=== PATIENT | female | born 1980 | race Two or more races ===

== ENCOUNTER → 2018-04-04 | Outpatient (REF) | payer SELFPAY ==
[~2018-04-04] MED LIST: HYDR-385 PO; IBU800 PO; IBUP800T37 PO; METR-1 PO; PAN40 PO; PER PO; PREN-85 PO; TETR-30 PO; [UNRECOGNIZED DRUG - CODE] PO
[2018-04-04 18:22] LABS: PLATELET COUNT, AUTOMATED 241 K/uL (150-450)
== END ==
LOC: ZZSENDIN 17:41
PROVIDERS: ATTEND Nurse Practitioner Family
DX: O13.2 Gestational [pregnancy-induced] hypertension without significant proteinuria, second trimester (principal); Z3A.19 19 weeks gestation of pregnancy
CPT/HCPCS: 82040; 82247; 82310; 82374; 82435; 82565; 82947; 83615; 84075; 84132; 84155; 84295; 84450; 84460; 84520; 84550; 85025

== ENCOUNTER 2018-08-17 04:58 | Inpatient (IN) | payer SELFPAY ==
[~2018-08-17] VITALS: Ht 162.6 cm; Wt 88.5 kg
[2018-08-17] VITALS (19 sets, daily range): BP systolic 99–126; BP diastolic 45–80; Ht 162.6 cm; Wt 88.5 kg
[2018-08-17] MEDS ORDERED: METOCLOPRAMIDE 10 MG/2 ML SDV IVP ONE (05:05)
[2018-08-17] MEDS ORDERED: FAMOTIDINE 20 MG/50 ML PREMIX IVPB ONE (05:05)
[2018-08-17] MEDS ORDERED: cefOXitin/DEX(*) 2GM/50ML PREM 50 ML IVPB ONE (05:05)
[2018-08-17] MEDS ORDERED: CITRIC ACID/SOD CIT 15 ML UDC PO ONE (05:25)
[2018-08-17] MEDS ORDERED: ONDANSETRON 4 MG/2 ML VIAL IVP ONE (05:30)
[2018-08-17] MEDS: LR(*) 1000 ML BAG 1,000 ML IV SCH ×3 (05:46→07:25)
[2018-08-17 06:08] LABS: PLATELET COUNT, AUTOMATED 211 K/uL (150-450)
[2018-08-17] MEDS ORDERED: PREN-127 PO (06:18)
[2018-08-17] MEDS ORDERED: AMOX500T10 PO (06:18)
[2018-08-17] MEDS ORDERED: MORPHINE PF 5 MG/10 ML AMP ONE (06:44)
[2018-08-17] MEDS ORDERED: OXYTOCIN 10 UNIT/ML SDV ONE (06:44)
[2018-08-17] MEDS ORDERED: fentaNYL CITR 100 MCG/2 ML AMP ONE (06:44)
[2018-08-17] MEDS ORDERED: KETOROLAC 30 MG/ML VIAL ONE (06:44)
[2018-08-17] MEDS ORDERED: ePHEDrine 25 MG/5 ML DISP.SYR IVP ONE ×2 (07:28→07:43)
[2018-08-17] MEDS ORDERED: GLYCOPYRROLATE 0.2MG/ML 1 ML INJ ONE (07:54)
[2018-08-17] MEDS ORDERED: PHENYLEPHRINE 10 MG/1 ML VIAL ONE (08:05)
--- NOTE | 2018-08-17 08:52 | History & Physical ---
History of Present Illness Age of Patient: 38 : 4 Para or TPAL: 2 EDC per LMP: August 29, 2018 Estimated Gestational Age: 39 Chief Complaint repeat c/s History of Present Illness Previous c/s x 2. complicated by CHTN and followed with serial u/s exams. This was early 19 week elevated pressure but did not see any more e levated pressures after. Past Medical, Surgical, Family and Obstetric Histories reviewed. Please see ACOG chart. History Allergies: Coded Allergies: No Known Allergies (Unverified Allergy, Mild, 09/29/12) Med Rec Home Meds Reported Medications Amoxicillin 500 Mg Tab (AMOXICILLIN 500 MG TAB) 500 Mg Tablet, 1 TAB PO Q8H, TAB 08/17/18 Vits W-Ca,Fe,Fa(<1MG) ( VITAMINS) 1 Each Tablet, 1 EACH PO DAILY, TAB 08/17/18 Discontinued Reported Medications Ibuprofen (IBUPROFEN) 800 Mg Tablet, 1 TAB PO Q8H, #60 09/30/12 Hydrocodone Bit/Acetaminophen (HYDROCODON-ACETAMINOPHEN 5-325) 1 Each Tablet, 1 - 2 EACH PO Q4-6H PRN, #40 09/30/12 [None] No Conflict Check 01/16/07 Review of Systems All Systems Reviewed/Normal: Yes, Except as Noted Exam General Exam Vital Signs Vital Signs Date Time Temp Pulse Resp B/P (MAP) Pulse Ox O2 Delivery O2 Flow Rate FiO2 08/17/18 05:50 98.1 79 16 108/65 (79) 96 Room Air General Apperance: Alert/Awake/No Acute Distress Neuro: No Gross deficits Eyes: Normal Extraocular Movement & Vison Cardiovascular: Regular Rate and Rhythm Respiratory: No Respiratory Distress Abdomen: Soft, Non-Tender, Non-Distended Extremities: No Cyanosis,Clubbing or Edema Integumentary: Skin Intact without Lesions or Rash Psychological: Alert & Oriented X3 Fetus FHT Category: I Medical Decision Making Data Points Result Diagram: 08/17/18 0545 VTE Prophylasis: Adult Deep Vein Thrombosis/Pulmonary: No Pharmacological Contraindicati: Pt at Low Risk for VTE Mechanical Contraindications: Pt at Low Risk for VTE Assessment and Plan Problems: (1) Previous section Assessment & Plan: Planned repeat c/s. Consent obtained. (2) 39 weeks gestation of OTIS SOLIS MD August 17, 2018 08:52
[2018-08-17] MEDS ORDERED: OXYTOCIN 30 UNIT/NS 500 ML 500 ML IV PRN (08:59)
[2018-08-17] MEDS ORDERED: MEASLES,MUMP,RUBELLA VAC 0.5ML SUBQ ONE (09:00)
[2018-08-17] MEDS ORDERED: ONDANSETRON 4 MG/2 ML VIAL IV PRN (09:00)
[2018-08-17] MEDS ORDERED: LANOLIN OINT 7 GM TUBE TP PRN (09:00)
[2018-08-17] MEDS: FAMOTIDINE 20 MG TAB PO SCH ×2 (09:00→21:54)
[2018-08-17] MEDS ORDERED: SIMETHICONE 80 MG CHEW CHEW PRN (09:00)
[2018-08-17] MEDS ORDERED: ACETAMINOPHEN 325 MG TAB PO PRN (09:00)
[2018-08-17] MEDS ORDERED: INFLUENZA VIRUS VAC 0.5ML SYR IM ONE (09:00)
[2018-08-17] MEDS: DOCUSATE CALCIUM 240 MG CAP PO SCH ×2 (09:00→21:53)
[2018-08-17] MEDS ORDERED: PROMETHAZINE 25 MG/ML 1 ML AMP IVP PRN (09:00)
--- NOTE | 2018-08-17 09:02 | Post Operative Note ---
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
[2018-08-17] MEDS ORDERED: IBUP800T37 PO (09:05)
[2018-08-17] MEDS ORDERED: DOCU-416 PO (09:05)
[2018-08-17] MEDS ORDERED: OXYC-865 PO (09:05)
--- NOTE | 2018-08-17 09:51 | OPERATIVE REPORT 1 ---
EVENT DATE: August 17, 2018 SURGEON: Levon Acosta MD ANESTHESIOLOGIST: Aida Dick CRNA ANESTHESIA: Spinal. MANAGER SPECIALTY: CAITLIN Jaime PREOPERATIVE DIAGNOSES 1. 38-week intrauterine . 2. Chronic hypertension. 3. Previous caesarean section. POSTOPERATIVE DIAGNOSES 1. 38-week intrauterine . 2. Chronic hypertension. 3. Previous caesarean section. PROCEDURE PERFORMED Repeat low transverse caesarean section via Pfannenstiel skin incision. ESTIMATED BLOOD LOSS 700 cc. FLUIDS 800 cc IV crystalloid. URINE OUTPUT 425 cc. FINDINGS Male , cephalic presentation. Apgars were 8 and 9. Placenta normal. Normal appearing uterus, tubes and ovaries. DESCRIPTION OF PROCEDURE The patient was brought to the operating room. Spinal anesthetic was administered. She was placed in the dorsal supine position with a leftward tilt and prepped and draped in the usual sterile fashion. Using a scalpel, a low transverse incision was made, dissecting out the previous scar, carried through to the underlying rectus fascia. This as nicked in the midline and extended laterally. The rectus muscles were dissected off using sharp dissection and in the midline. The peritoneum was entered sharply and extended superiorly and inferiorly. This exposed the uterus. Bladder blade was inserted and the vesicouterine peritoneum was entered sharpy and extended laterally. Bladder flap was created digitally. Bladder blade was reinserted here, retracting the bladder well away from the operative area. This exposed the lower uterine segment, which received a low transverse incision with the scalpel. This was carried through to the intra-amniotic space. There was clear fluid upon the amniotomy. It was extended laterally with blunt lateral traction. A hand was inserted. The infant's head was elevated to the incision and fundal pressure was applied. The infant's head delivered atraumatically. Mouth and nose were again bulb suctioned. Further fundal pressure affected delivery of the shoulders followed by the remainder of the infant without difficulty. Mouth and nose were again bulb suctioned. Cord was clamped, cut and the infant was passed to waiting resuscitation team. Cord sample was obtained. Placenta was delivered manually. Uterus was exteriorized and cleared of clots and debris. Uterine repair was performed with #1 Monocryl and running locking stitch. There was a bleeder noted on the left side of the incision that appeared to be arterial in nature. Therefore, an [place] stitch was performed in that location to tamponade that bleeder. The incision was further imbricated with #1 Monocryl in a running nonlocking stitch. This was hemostatic upon completion. The posterior cul-de-sac was then irrigated and swept clear of clots and debris. Uterus was returned to the abdomen and bilateral pelvic gutters were irrigated and swept clear of clots and debris. The parietal peritoneum was closed with 3-0 Vicryl in a running nonlocking stitch. Rectus muscles were reapproximated in the midline with the same stitch. Muscle bellies were irrigated and blotted dry. A few capillary bleeders were cauterized. The rectus fascia was then repaired using 0 Vicryl in a running nonlocking stitch. Subcuticular space was closed with a 3-0 Vicryl Plus and skin incision was repaired with 4-0 Monocryl simple subdermal. It was covered with Dermabond skin adhesive. She tolerated the procedure well. Sponge, laps, needle and instrument counts were all correct x3. She was taken to recovery in stable condition. JESSIE
[2018-08-17] MEDS: DLR(*) 1000 ML BAG 1,000 ML IV PRN ×2 (10:09→17:15)
--- NOTE | 2018-08-17 11:09 | Anesthesia OB Pre-Anes Eval ---
History of Present Illness Anesthesia Start Date: August 17, 2018 Anesthesia Start Time: 07:26 OB Anesthesia Diagnosis: repeat c/section EDC: August 29, 2018 : 4 Para: 2 Vital Signs: Vital Signs 08/17/18 08/17/18 10:00 11:00 Temp 98.1 Pulse 80 Resp 16 B/P (MAP) 103/45 (64) Pulse Ox 99 O2 Delivery Nasal Cannula O2 Flow Rate 1.0 Vital Signs 08/17/18 08/17/18 10:00 11:00 Temp 98.1 Pulse 80 Resp 16 B/P (MAP) 103/45 (64) Pulse Ox 99 O2 Delivery Nasal Cannula O2 Flow Rate 1.0 Pain Ratin Result Diagram: 08/17/18 0545 Height (Inches): 64.00 Weight (Pounds): 195 BMI (kg/m2): 33.30 Past Medical History Medical History: no pertinent history Surgical History: Attended Childbirth Classes?: No Hx Anesthesia Reactions: No Hx Family Anesthesia Reaction: No Home Meds Active Scripts Oxycodone Hcl/Acetaminophen (PERCOCET 5-325 MG TABLET) 1 Each Tablet, 1 EACH PO Q4-6H PRN for PAIN, #30 TAB 0 Refills TAKE 1 TABLET NEEDED FOR PAIN - NO CLOSER THAN EVERY 4-6 HOURS. Prov:RACQUEL WASHINGTON 08/17/18 Reported Medications Amoxicillin 500 Mg Tab (AMOXICILLIN 500 MG TAB) 500 Mg Tablet, 1 TAB PO Q8H, TAB 08/17/18 Vits W-Ca,Fe,Fa(<1MG) ( VITAMINS) 1 Each Tablet, 1 EACH PO DAILY, TAB 08/17/18 Discontinued Reported Medications Ibuprofen (IBUPROFEN) 800 Mg Tablet, 1 TAB PO Q8H, #60 09/30/12 Hydrocodone Bit/Acetaminophen (HYDROCODON-ACETAMINOPHEN 5-325) 1 Each Tablet, 1 - 2 EACH PO Q4-6H PRN, #40 09/30/12 [None] No Conflict Check 01/16/07 Allergies: Coded Allergies: No Known Allergies (Unverified Allergy, Mild, 09/29/12) Anesthesia OB ROS Neurological: No migraines/headaches, No seizures, No neuropathy, No other ENT: Denies Tooth caps, Denies Loose teeth, Denies Chipped teeth, Denies Dentures, Denies Bridges, Denies Retainers, Denies Veneers, Denies Implants, Denies Tongue ring, Denies Other Pulmonary: No asthma, No smoker (pks/day/yrs), No other Airway Class: ll Cardiovascular ROS: No edema, No arrhythmia, No other GI ROS: NPO Last Solids Date: August 16, 2018 Last Solids Time: 23:30 ROS: No Herpes, No STD(s), No Liver Disease, No Renal Disease, No Other Endocrine ROS: No diabetes, No gestational diabetes, No thyroid disorder, No other Musculoskeletal ROS: No low back pain, No low back injury, No scoliosis, No other ASA Classification: 2 Assessment and Plan Anesthesia Plan: SAB Anesthesia Stop Day: August 17, 2018 Anesthesia Stop Time: 09:07 CASANDRA MIDDLETON CRNA August 17, 2018 11:09
[2018-08-17] MEDS ORDERED: KETOROLAC 30 MG/ML VIAL IVP SCH (13:00)
[2018-08-17] MEDS: KETOROLAC 30 MG/ML VIAL IVP SCH ×2 (14:44→21:54)
[2018-08-17] MEDS ORDERED: ZOLPIDEM TARTRATE 10 MG TAB PO PRN (21:00)
[2018-08-17] MEDS: oxyCODON/ACET (*)5/325MG (CII) 1 TAB TAB PO PRN (21:53)
[2018-08-18] VITALS (7 sets, daily range): BP systolic 94–134; BP diastolic 54–86
[2018-08-18] MEDS: KETOROLAC 30 MG/ML VIAL IVP SCH (04:15)
[2018-08-18 06:20] LABS: PLATELET COUNT, AUTOMATED 178 K/uL (150-450)
--- NOTE | 2018-08-18 08:18 | OB/GYN Progress Note ---
OB Subjective Progress Notes Subjective Doing well. Pain controlled and ambulating well. Catheter in place still. GI: NEG Nausea : Voiding Well Pain: Mild OB Objective Physical Exam Vital Signs Date Time Temp Pulse Resp B/P (MAP) Pulse Ox O2 Delivery O2 Flow Rate FiO2 08/18/18 04:15 98.1 76 18 94/54 (67) Room Air 08/17/18 20:30 92 08/17/18 17:21 0.5 Intake and Output 08/18/18 07:00 Intake Total 740 ml Output Total 5200 ml Balance -4460 ml Intake Oral 740 ml Output Urine Total 5200 ml General Appearance: Alert/Awake/No Acute Distress Neurological: No Gross deficits Eyes: Normal Extraocular Movement & Vison Cardiovascular: Normal Rhythm & Peripheral Pulses, Regular Rate and Rhythm Respiratory: No Respiratory Distress, Clear to Auscultation Extremities: No Cyanosis,Clubbing or Edema Integumentary: Skin Intact without Lesions or Rash Psychological: Alert & Oriented X3 Result Diagram: 08/18/18 0603 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
[2018-08-18] MEDS ORDERED: IBUPROFEN 800 MG TAB PO SCH (09:00)
[2018-08-18] MEDS: FAMOTIDINE 20 MG TAB PO SCH ×2 (09:05→20:48)
[2018-08-18] MEDS: DOCUSATE CALCIUM 240 MG CAP PO SCH ×2 (09:05→20:48)
[2018-08-18] MEDS: oxyCODON/ACET (*)5/325MG (CII) 1 TAB TAB PO PRN ×4 (09:05→21:20)
[2018-08-18] MEDS: IBUPROFEN 800 MG TAB PO SCH ×2 (12:56→20:48)
[2018-08-19] MEDS: oxyCODON/ACET (*)5/325MG (CII) 1 TAB TAB PO PRN ×3 (02:34→12:44)
[2018-08-19 05:08] VITALS: BP 113/73
[2018-08-19] MEDS: IBUPROFEN 800 MG TAB PO SCH ×2 (05:08→12:44)
[2018-08-19 08:00] VITALS: BP 132/80
[2018-08-19] MEDS ORDERED: DIPHTH/TETANUS/ACEL. PERTUSSIS IM ONLY ONE (09:00)
--- NOTE | 2018-08-19 09:22 | OB/GYN Progress Note ---
OB Subjective Progress Notes Subjective Doing well. Pain controlled and ambulating well. Voiding well. Bleeding light. GI: NEG Nausea : Voiding Well Pain: Mild OB Objective Physical Exam Vital Signs Date Time Temp Pulse Resp B/P (MAP) Pulse Ox O2 Delivery O2 Flow Rate FiO2 08/19/18 05:08 97.9 87 16 113/73 (86) 90 Room Air 08/17/18 17:21 0.5 Intake and Output 08/19/18 07:00 Intake Total 600 ml Output Total 300 ml Balance 300 ml Intake Oral 600 ml Output Urine Total 300 ml # Voids 1 General Appearance: Alert/Awake/No Acute Distress Neurological: No Gross deficits Eyes: Normal Extraocular Movement & Vison Cardiovascular: Normal Rhythm & Peripheral Pulses, Regular Rate and Rhythm Respiratory: No Respiratory Distress, Clear to Auscultation Abdomen: Soft, Non-Tender, Non-Distended, Fundus Firm, Non-Tender Incision: Clean, Dry, Intact, Dermabond Extremities: No Cyanosis,Clubbing or Edema Integumentary: Skin Intact without Lesions or Rash Psychological: Alert & Oriented X3 Result Diagram: 08/18/18 0603 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 Reviewed discharge instructions. F/U at 2 and 6 weeks. OTIS SOLIS MD August 19, 2018 09:22
--- NOTE | 2018-08-19 09:23 | OB/GYN Discharge Summary ---
Discharge Summary Reason for Hosp/Final Diag: (1) Previous section (2) 39 weeks gestation of (3) Other specified aftercare following surgery Hospital Course & Plan: Home later today. Reviewed discharge instructions. F/U at 2 and 6 weeks. Lates Vital Signs Vital Signs Date Time Temp Pulse Resp B/P (MAP) Pulse Ox O2 Delivery O2 Flow Rate FiO2 08/19/18 05:08 97.9 87 16 113/73 (86) 90 Room Air 08/17/18 17:21 0.5 Weight (Pounds): 195 Result Diagram: 08/18/18 0603 Condition: Improved Discharge: Home, Self Mcfp Meds Active Scripts Oxycodone Hcl/Acetaminophen (PERCOCET 5-325 MG TABLET) 1 Each Tablet, 1 EACH PO Q4-6H PRN for PAIN, #30 TAB 0 Refills TAKE 1 TABLET NEEDED FOR PAIN - NO CLOSER THAN EVERY 4-6 HOURS. Prov:RACQUEL WASHINGTON 08/17/18 Reported Medications Amoxicillin 500 Mg Tab (AMOXICILLIN 500 MG TAB) 500 Mg Tablet, 1 TAB PO Q8H, TAB 08/17/18 Vits W-Ca,Fe,Fa(<1MG) ( VITAMINS) 1 Each Tablet, 1 EACH PO DAILY, TAB 08/17/18 Discontinued Reported Medications Ibuprofen (IBUPROFEN) 800 Mg Tablet, 1 TAB PO Q8H, #60 09/30/12 Hydrocodone Bit/Acetaminophen (HYDROCODON-ACETAMINOPHEN 5-325) 1 Each Tablet, 1 - 2 EACH PO Q4-6H PRN, #40 09/30/12 [None] No Conflict Check 01/16/07 Follow up Referrals: SIGNALS ANALYST - In Two Weeks @ [facility] with OTIS ACOSTA MD Follow up with: Dr. Acosta [phone] Follow up in: 2 wks PO Discharge Diet: As Tolerates Discharge Activity: As Tolerates, No Heavy Lifting x 6 wks, No Heavy Lifting > 10lb, Pelvic Rest Special Instructions: Copies to: OTIS ACOSTA MD ; OTIS ACOSTA MD August 19, 2018 09:23
[2018-08-19 10:15] VITALS: BP 127/72
[2018-08-19] MEDS: FAMOTIDINE 20 MG TAB PO SCH (10:20)
[2018-08-19] MEDS: DOCUSATE CALCIUM 240 MG CAP PO SCH (10:20)
== END 2018-08-19 13:15 | disposition home or self-care (01) | DRG 788 ==
LOC: OB 04:58 → PED 09:00
PROVIDERS: ADMIT Obstetrics & Gynecology; ATTEND Obstetrics & Gynecology
PROC: 10D00Z1 Extraction of Products of Conception, Low, Open Approach (ICD-10-PCS; principal; 2018-08-17 07:30)
DX: O10.92 Unspecified pre-existing hypertension complicating childbirth (principal); O34.211 Maternal care for low transverse scar from previous cesarean delivery; Z3A.39 39 weeks gestation of pregnancy; Z37.0 Single live birth
CPT/HCPCS: 36415; 85014; 85018; 85025; 86850; 86900; 86901; J0694; J1885; J2270; J2370; J2405; J2590; J2765; J3010; J3490; J7120